=== PATIENT | male | born 1970 | race Caucasian/White ===

== ENCOUNTER → 2022-06-07 14:24 | Outpatient (CLI) | payer BC, SELFPAY ==
--- NOTE | ~2022-06-07 | XR_ITS ---
EXAMINATION: XR chest 2V Exam Date/Time: 06/07/2022 14:32 INTERVENTIONAL RADIOLOGIST HISTORY: Encounter for general adult medical examination without abno Comparison: 11/29/2018. RESULT: Lines, tubes, and devices: None. Lungs and pleura: Clear. Cardiomediastinal silhouette: Stable. Other: No acute osseous or upper abdominal finding. Unchanged spherical metallic foreign body projec ting over the left lower lung. IMPRESSION: No acute cardiopulmonary process. Reviewed, dictated and finalized at location K. RVENTIONAL RADIOLOGIST
== END ==
DX: Z00.00 Encounter for general adult medical examination without abnormal findings (principal); L40.50 Arthropathic psoriasis, unspecified; E78.5 Hyperlipidemia, unspecified; J30.2 Other seasonal allergic rhinitis; M75.40 Impingement syndrome of unspecified shoulder; Z82.49 Family history of ischemic heart disease and other diseases of the circulatory system
CPT/HCPCS: 71046

== ENCOUNTER 2022-08-25 12:49 | Emergency (ER) | payer BC, SELFPAY ==
--- NOTE | ~2022-08-25 | XR_ITS ---
[XR ribs RT 2V w CXR 2V ] INDICATION: Cough TECHNIQUE: Frontal projection of the upper right ribs, frontal projection of the lower right ribs, ob lique projection of all the right ribs, frontal inspiratory chest x-ray for interpretation. FINDINGS: There are no displaced rib fractures identified. There are no soft tissue abnormality see n. The lungs are clear. IMPRESSION: 1:No acute displaced rib fractures. Reviewed, dictated and finalized at location L.
[2022-08-25 12:58] VITALS: BP 164/94; PULSE 78; RESP 16; TEMP 36.7; O2SAT 99
--- NOTE | 2022-08-25 14:13 | ED.GENADULT ---
HPI - General Adult General Chief complaint: Unspecified Stated complaint: rib pain right side Time Seen by Provider: 08/25/22 13:58 Source: patient Mode of arrival: ambulatory Limitations: no limitations History of Present Illness HPI narrative: Patient is a 51-year-old male who presents to the emergency department for evaluation of right-sided chest wall pain. Patient reports he has had a cough over the past several weeks with several coughing fits a day. Patient reports today he felt an acute pop sensation with a coughing fit on his right lateral chest which has caused pain with movement. Exacerbated with sitting up or laying flat. Patient denies any midline pain. No frontal chest pain, shortness of breath, pleuritic pain. Patient has been taking Aleve, Tylenol without improvement in his symptoms. Patient reports burning type pain on the right side of his chest. Denies any blisters, vesicles, lesions. No fever or chills. No lightheadedness, dizziness, neck pain, jaw pain, shoulder pain. No ripping or tearing sensation to the flank. No syncope. Patient denies rhinorrhea, congestion, sore throat. No recent sick contacts. Related Data Allergies Allergy/AdvReac Type Severity Reaction Status Date / Time codeine Allergy Unknown Nausea Verified 08/25/22 14:21 Review of Systems Review of Systems: CONSTITUTIONAL: Denies fever, chills, or sweats. EYES: Denies visual changes, redness, or discharge. ENT: Denies rhinorrhea, congestion, sore throat, or otalgia. CARDIOVASCULAR: Denies frontal chest pain, palpitations, or edema. Reports right lateral chest wall pain RESPIRATORY: Reports cough without shortness of breath. GASTROINTESTINAL: Denies abdominal pain, nausea, vomiting, or diarrhea. GENITOURINARY: Denies dysuria or hematuria. SKIN: Denies rash or itching. MUSCULOSKELETAL: Denies back pain, joint pain, or myalgia. NEUROLOGIC: Denies headache, numbness, or weakness. Exam Narrative: GENERAL: Awake, alert, conversant HEAD: Normocephalic, atraumatic. EYES: PERRLA and EOMI. ENT: Nares clear, no rhinorrhea or epistaxis. Mucous membranes moist. NECK: Supple. CHEST: No respiratory distress, breathing even and non labored, no frontal chest wall pain HEART: Regular rate, sinus rhythm ABDOMEN:Non distended, non tender Thorax: No midline thoracic pain. No vesicles, lesions, ecchymosis overlying the lateral chest wall. Patient with right mid axillary tenderness overlying T12 which exactly reproduces the pain. No bruising, no deformity. No midline thoracic or lumbar pain. EXTREMITIES: Normal range of motion. No edema. SKIN: Warm, dry, no rash. NEURO:No focal deficits. Alert and oriented x3 Course Vital Signs Vital signs: Vital Signs Temperature 36.7 C 08/25/22 12:58 Pulse Rate 78 08/25/22 12:58 Respiratory Rate 16 08/25/22 12:58 Blood Pressure 164/94 H 08/25/22 12:58 Pulse Oximetry 99 08/25/22 12:58 Oxygen Delivery Room Air 08/25/22 12:58 Temperature 36.7 C 08/25/22 12:58 Pulse Rate 89 08/25/22 15:37 Respiratory Rate 17 08/25/22 15:37 Blood Pressure 144/89 H 08/25/22 15:37 Pulse Oximetry 99 08/25/22 15:37 Oxygen Delivery Room Air 08/25/22 12:58 Medical Decision Making [facility] Narrative Medical decision making narrative: Medical decision making narrative: -Presentation: Patient is a 51-year-old male presenting to the emergency department for evaluation of right chest wall pain. Occurred this morning after significant bout of coughing. Patient reports coughing over the past several weeks. -DDX includes but is not limited to: Chest wall strain, PE, pneumothorax, ACS -Co-morbidities complicating care: None -Social determinants of health: None -External Chart Review: External EMR record reviewed -Hx from independent Sources: None -Discussion of Management/Consultants: None -Independent interpretation of studies: Chest x-ray per my interpretation no acute cardiopulm
[2022-08-25] MEDS: LIDOCAINE 5% PATCH 1 PATCH TRANSDERM (15:34)
[2022-08-25] MEDS: KETOROLAC (*BKC) 60 MG/2 ML VIAL 30 MG IM (15:34)
[2022-08-25 15:37] VITALS: BP 144/89; PULSE 89; RESP 17; O2SAT 99
== END 2022-08-25 15:39 | disposition home or self-care (01) ==
PROVIDERS: Emergency Provider Emergency Medicine
DX: S29.011A Strain of muscle and tendon of front wall of thorax, initial encounter (principal); X50.9XXA Other and unspecified overexertion or strenuous movements or postures, initial encounter
CPT/HCPCS: 71046; 71100; 96372; 99283; A9270; J1885

== ENCOUNTER 2023-01-28 18:53 | Emergency (ER) | payer BC, SELFPAY ==
[2023-01-28 19:19] VITALS: BP 189/82; PULSE 92; RESP 17; TEMP 36.7; O2SAT 96
[2023-01-28] MEDS: LIDOCAINE HCL 2% GEL UROJET 10 ML PKG (19:50)
--- NOTE | 2023-01-28 20:07 | ED.GENADULT ---
HPI - General Adult General Chief complaint: Urogenital-Male Stated complaint: Unable to Pee s/p hernia repair Time Seen by Provider: 01/28/23 19:25 History of Present Illness HPI narrative: Patient 52-year-old gentleman who presents the emergency department with chief complaint of urinary retention and constipation. Patient reports he had a hernia repair yesterday and reports that he has had constipation since patient does report that he had a small amount of a bowel movement that occurred to the emergency department but reports that he has been unable to start his stream. The patient reports no prior history of urinary retention Related Data Allergies Allergy/AdvReac Type Severity Reaction Status Date / Time codeine Allergy Unknown Nausea Verified 01/28/23 18:54 Review of Systems Review of Systems: A 10 system review of systems was completed on the patient and is negative except for what is stated in the HPI. Nursing and ancillary documentation was reviewed. Exam Narrative: GENERAL: Well-appearing, well-nourished, and in mild pain distress distress. HEAD: Normocephalic, atraumatic. EYES: PERRLA and EOMI. ENT: Nares clear, no rhinorrhea or epistaxis. Mucous membranes moist. NECK: Supple. CHEST: Clear to auscultation. No respiratory distress. HEART: Regular rate and rhythm. No murmur heard. Normal peripheral pulses. ABDOMEN: Soft, suprapubic tenderness distended bladder on exam incision in the midline is dressed and no signs of redness or drainage, normal active bowel sounds. EXTREMITIES: Normal range of motion. No edema. SKIN: Warm, dry, no rash. NEURO: No focal deficits. Alert and oriented x3. PSYCH: Normal mood and affect. Course Course Emergency Course: Differential diagnose includes urinary obstruction, fecal impaction, Patient had greater than 400 mL of urine in his bladder Valladares catheter was placed by the nursing staff Patient still feeling as though he needed to have a bowel movement was unable to defecate rectal exam showed a large amount of stool in the vault this was manually disimpacted and a enema was performed at that point Vital Signs Vital signs: Vital Signs Temperature 36.7 C 01/28/23 19:19 Pulse Rate 92 01/28/23 19:19 Respiratory Rate 17 01/28/23 19:19 Blood Pressure 189/82 H 01/28/23 19:19 Pulse Oximetry 96 01/28/23 19:19 Oxygen Delivery Room Air 01/28/23 19:19 Temperature 36.7 C 01/28/23 19:19 Pulse Rate 92 01/28/23 19:19 Respiratory Rate 17 01/28/23 19:19 Blood Pressure 189/82 H 01/28/23 19:19 Pulse Oximetry 96 01/28/23 19:19 Oxygen Delivery Room Air 01/28/23 19:19 Medical Decision Making Vital Signs Vital Signs: Vital Signs Temperature 36.7 C 01/28/23 19:19 Pulse Rate 92 01/28/23 19:19 Respiratory Rate 17 01/28/23 19:19 Blood Pressure 189/82 H 01/28/23 19:19 Pulse Oximetry 96 01/28/23 19:19 Oxygen Delivery Room Air 01/28/23 19:19 Temperature 36.7 C 01/28/23 19:19 Pulse Rate 92 01/28/23 19:19 Respiratory Rate 17 01/28/23 19:19 Blood Pressure 189/82 H 01/28/23 19:19 Pulse Oximetry 96 01/28/23 19:19 Oxygen Delivery Room Air 01/28/23 19:19 Lab Data Labs: Urine Characteristics Clear Discharge Plan Discharge Clinical Impression: Acute urinary retention, Constipation Patient Disposition: Home, Self-Care Condition: Stable Instructions: Antibiotic Form, Constipation (ED), Urinary Retention in Men (ED), Valladares Catheter Placement and Care (ED) Prescriptions: New polyethylene glycol 3350 [Miralax] 17 gram/dose powder 17 g PO DAILY 4 Days Qty: 68 0RF No Action diazepam 5 mg tablet 5 mg PO HS PRN (Reason: pain, moderate) 10 Days Qty: 10 0RF lidocaine 4 % adhesive patch,medicated 1 patch TOPICAL Q24H PRN (Reason: pain) 10 Days Qty: 10 0RF Rx Instructions: may leave on for up to 12
[2023-01-28 22:44] VITALS: BP 142/74; PULSE 88; RESP 16; O2SAT 98
== END 2023-01-28 22:46 | disposition home or self-care (01) ==
PROVIDERS: Emergency Provider Emergency Medicine; PCP Physician Assistant
DX: R33.9 Retention of urine, unspecified (principal); K59.00 Constipation, unspecified
CPT/HCPCS: 51702; 99283

== ENCOUNTER 2023-01-29 15:48 | Emergency (ER) | payer BC, SELFPAY ==
[2023-01-29 15:55] VITALS: BP 166/82; PULSE 76; RESP 15; TEMP 37; O2SAT 98
--- NOTE | 2023-01-29 17:26 | ED.GENADULT ---
HPI - General Adult General Chief complaint: Urogenital-Male Stated complaint: guillen not draining Time Seen by Provider: 01/29/23 16:32 Source: patient Mode of arrival: ambulatory Limitations: no limitations History of Present Illness HPI narrative: This is a 52-year-old male who s/p day 2 from hernia repair who presents to the ED with concern over her Guillen catheter problems. He was seen here in the ED last night and had a Guillen catheter placed due to urinary retention. He has been having a lot of pain and constipation since the surgery which was causing him to not be able to urinate. Today he noticed that he had the urge to urinate and then had urine leaking around the outside edge of the catheter. Reports he saw initial small clots in the tubing but no hematuria overall in the Guillen bag. Denies penile or scrotal pain or swelling. Denies fevers, chills, nausea, vomiting. He does endorse abdominal pain around the surgical site but he has been avoiding pain medications so that he does not become constipated again. Related Data Allergies Allergy/AdvReac Type Severity Reaction Status Date / Time codeine Allergy Unknown Nausea Verified 01/28/23 18:54 Review of Systems Review of Systems: All systems as dictated in HPI Exam Narrative: GENERAL: Well-appearing, well-nourished, and in no acute distress. HEAD: Normocephalic, atraumatic. EYES: PERRLA and EOMI. ENT: Nares clear, no rhinorrhea or epistaxis. Mucous membranes moist. Oropharynx without tonsillar hypertrophy exudate or other lesions. NECK: Supple. No adenopathy or masses. CHEST: No respiratory distress. Clear to auscultation. No wheezes rales or rhonchi HEART: Regular rate and rhythm. No murmur heard. Normal peripheral pulses. ABDOMEN: Mildly tender around the umbilical surgical site. Soft, otherwise nontender, nondistended, normal active bowel sounds. Negative peritoneal signs. MSK: Normal range of motion. No edema. SKIN: Surgical wound site on the abdomen is well-appearing. No drainage. No redness. Warm, dry, no rash. NEURO: Alert and oriented x3. No focal deficits. PSYCH: Normal mood and affect. Course Course Emergency Course: Reevaluation: Patient was able to urinate by himself and would like to go home. Vital Signs Vital signs: Vital Signs Temperature 98.6 F 01/29/23 15:55 Pulse Rate 76 01/29/23 15:55 Respiratory Rate 15 01/29/23 15:55 Blood Pressure 166/82 H 01/29/23 15:55 Pulse Oximetry 98 01/29/23 15:55 Temperature 98.6 F 01/29/23 15:55 Pulse Rate 76 01/29/23 15:55 Respiratory Rate 15 01/29/23 15:55 Blood Pressure 166/82 H 01/29/23 15:55 Pulse Oximetry 98 01/29/23 15:55 Medical Decision Making MDM Narrative Medical decision making narrative: This is a 52-year-old male who presents to the ED for chief complaint of Guillen catheter problem. He had a Guillen cath placed in the ER in ER last night after he was having urinary retention following surgery on Monday for abdominal hernia. Vitals today are normal. Exam is benign. Abdominal exam fully intact. Mild tenderness as expected. We were able to have the Guillen catheter removed. He was able to drink fluids and urinate on his own today. UA is unremarkable. He feels that the urination is getting better since the constipation has improved as well. He will be discharged stable condition. Encouraged to keep taking Tylenol and ibuprofen for pain control. Pt will be discharged in stable condition. Return precautions given and supportive measures discussed. Pt is understanding and agreeable with plan for discharge and follow-up with PCP/surgeon Vital Signs Vital Signs: Vital Signs Temperature 98.6 F 01/29/23 15:55 Pulse Rate 76 01/29/23 15:55 Respiratory Rate 15 01/29/23 15:55 Blood Pressure 166/82 H 01/29/23 15:55 Pulse Oximetry 98 01/29/23 15:55 Temperature 98.6 F 01/29/23 15:55 Pulse Rate 76 01/29/23 15:55 Respiratory R
[2023-01-29 18:32] LABS: Appearance Urine Clear (Clear); Bacteria Urine None Seen /hpf; Bilirubin Urine Negative (Negative); Blood Urine Trace (Negative); Color Urine Yellow (Yellow); Glucose Urine UA Negative (Negative); Ketones Urine Negative (Negative); Leukocyte Esterase Ur Trace LEU/UL (Negative); Nitrate Urine Negative (Negative); Non Pathogenic Casts 0-2; Protein Urine Negative (Negative); RBC Urine 0-2 /hpf (0-2); Specific Grav Ur 1.007 (1.001-1.035); Squamous Epithelial Cell Urine None seen /hpf (Few); Urobilinogen Urine 0.2 mg/dL (<2.0); WBC Urine 0-5 /hpf
[2023-01-29 18:41] LABS: Add Urine Microscopic? YES
== END 2023-01-29 19:00 | disposition home or self-care (01) ==
PROVIDERS: Emergency Provider Physician Assistant; PCP Physician Assistant
DX: T83.038A Leakage of other urinary catheter, initial encounter (principal); R33.8 Other retention of urine; Z98.890 Other specified postprocedural states
CPT/HCPCS: 81001; 99283

== ENCOUNTER → 2023-03-17 14:26 | Outpatient (CLI) | payer BC, SELFPAY ==
--- NOTE | ~2023-03-17 | MR_ITS ---
EXAMINATION: MR abdomen wo/w con DATE: 03/17/2023 15:49 INDICATION: Retroperitoneal mass TECHNIQUE: Magnetic resonance imaging (MRI) of the abdomen was performed without and with 20 mL Multi marquis intravenous contrast. Sequences included coronal T2-weighted SS-FSE, coronal and axial FS 2D-F IESTA, axial STIR FSE, axial T2-weighted SS-FSE, axial T2-weighted FS SS-FSE, axial diffusion-weighte d SE, axial dual-echo T1-weighted FSPGR, and axial and coronal T1-weighted LAVA. Postcontrast axial T 1-weighted LAVA images were obtained in a time course. Postcontrast coronal T1-weighted LAVA images w ere obtained. COMPARISON: Radiographs dated 08/25/[address] dated 07/21/2018 FINDINGS: There is prominent metallic magnetic field artifact centered along the lateral lower chest wall likel y related to a metallic BB seen at this location on the rib radiographs. This obscures portions of th e chest wall, spleen, splenic flexure of the colon and portion of the greater curvature of the stomac h. Heart size is normal. No pericardial or pleural effusion. Liver, gallbladder, visualized spleen, p ancreas, bilateral adrenal glands and kidneys are normal. Visualized portions of bowels are unremarka ble. There is a T2 hyperintense cystic retroperitoneal mass in the left abdomen which measures 4.6 x 4.2 x 3.6 cm. This located to the left of the infrarenal aorta at the level of L3. This without signi ficant interval change since lumbar spine CT dated 07/21/2018 at which time the lesion measured 4.9 x 4 .0 x 3.3 cm. This along with the absence of solid soft tissue component favors a benign etiology such as a lymphangioma. Postoperative changes with with multiple foci of susceptibility artifact and 2.3 x 2.1 x 1.6 cm T2 hyperintense subcutaneous fluid collection in the expected region of the umbilicus which could be related to prior umbilical hernia repair. No pathologically enlarged abdominal lymphad enopathy. Mild lumbar spondylosis. Normal bone marrow signal throughout. IMPRESSION: 1. No significant interval change since 2019 in a simple appearing 4.6 x 4.2 x 3.6 cm cystic left par aspinal retroperitoneal mass without evident soft tissue component which could represent a seroma or lymphangioma. Reviewed, dictated and finalized at location A. IMPRESSION: 1. No significant interval change since 2018 in a simple appearing 4.6 x 4.2 x 3.6 cm cystic left paraspinal retroperitoneal mass without evident soft tissue component which could represent a seroma or lymphangioma.
== END ==
DX: R19.00 Intra-abdominal and pelvic swelling, mass and lump, unspecified site (principal)
CPT/HCPCS: 74183; A9577

== ENCOUNTER 2024-07-27 11:24 | Outpatient (CLI) | payer BC, SELFPAY ==
--- NOTE | ~2024-07-27 | XR_ITS ---
Clinical Indication: Arthropathic psoriasis PA and lateral views of the chest: Comparison: 08/25/2022 Findings: The lungs are clear, without evidence of focal consolidation or pleural effusion. Cardiome diastinal silhouette is within normal limits. Stable small metallic foreign body projecting over the left lower chest.. Impression: No acute abnormality. Reviewed, dictated and finalized at location . Impression: No acute abnormality.
== END 2024-07-27 11:25 | disposition home or self-care (01) ==
DX: Z00.00 Encounter for general adult medical examination without abnormal findings (principal); I25.10 Atherosclerotic heart disease of native coronary artery without angina pectoris; I12.9 Hypertensive chronic kidney disease with stage 1 through stage 4 chronic kidney disease, or unspecified chronic kidney disease; N18.2 Chronic kidney disease, stage 2 (mild); M54.12 Radiculopathy, cervical region; E78.5 Hyperlipidemia, unspecified; L40.50 Arthropathic psoriasis, unspecified; J30.2 Other seasonal allergic rhinitis; Z78.9 Other specified health status; J98.01 Acute bronchospasm
CPT/HCPCS: 71046